=== PATIENT | female | born 1990 | race Two or more races ===

== ENCOUNTER 2021-08-29 18:34 | Emergency (ER) | payer SELFPAY ==
[~2021-08-29] VITALS: Ht 165.1 cm; Wt 68.0 kg
--- NOTE | 2021-08-29 19:45 | NUR ---
BIB RA C/O R SHOULDER AND RIB PAIN S/P MECHANICAL FALL SINCE YESTERDAY RATED 10/10. STATES PREVIOUS FALL X3 WEEKS AGO. PLACED ON MONITOR VSS AND GIVEN WARM BLANKET FOR COMFORT. MD WAS AT BEDSIDE FOR EVAL.
--- NOTE | 2021-08-29 19:58 | NUR ---
XRAY AT BEDSIDE
[2021-08-29] MEDS ORDERED: IBUP-1955 PO (21:11)
[2021-08-29] MEDS ORDERED: IBUPROFEN 600 MG TABLET ONE (21:15)
--- NOTE | 2021-08-29 21:25 | NUR ---
PT DISCHARGED IN STABLE CONDITION VSS STABLE AT TIME OF INSTRUCTION. WRITTEN AND VERBAL DISCHARGE INSTRUCTIONS, XRAY RESULTS AND HOMELESS RESOURCES PROVIDED.PATIENT VERBALIZED UNDERSTANDING.
[2021-08-29 21:30] VITALS: BP 125/76
[2021-08-29] MEDS ORDERED: IBUPROFEN 600 MG TABLET PO ONE (21:30)
== END 2021-08-29 21:31 | disposition home or self-care (01) ==
LOC: ER 18:51
DX: S46.811A Strain of other muscles, fascia and tendons at shoulder and upper arm level, right arm, initial encounter (principal); S20.211A Contusion of right front wall of thorax, initial encounter; Z59.0 Homelessness; W01.0XXA Fall on same level from slipping, tripping and stumbling without subsequent striking against object, initial encounter; Y93.89 Activity, other specified; Y92.89 Other specified places as the place of occurrence of the external cause; Y99.8 Other external cause status
CPT/HCPCS: 71100-TC; 73030-TC